=== PATIENT | male | born 1935 | race Caucasian/White ===

== ENCOUNTER 2016-09-27 18:41 | Emergency (ER) | payer MEDICARE ==
[2016-09-27] MEDS ORDERED: Ondansetron HCl/PF 4 MG/2 ML Vial ONE (19:27)
[2016-09-27] MEDS ORDERED: Morphine Sulfate 2 MG/ML SYRINGE ONE ×2 (19:27→20:10)
[2016-09-27] MEDS ORDERED: Ketorolac Tromethamine 30 MG/ML VIAL ONE (19:27)
--- NOTE | 2016-09-27 19:37 | RAD ---
RIGHT HIP TWO VIEW 09/27/16 HISTORY: Trauma, fall. COMPARISON: None. FINDINGS: There is a comminuted mid cervical femoral neck fracture with foreshortening. Large right hip joint effusion. Surgical clips of the right pelvis. IMPRESSION: Comminuted mid cervical foreshortened right femoral neck fracture. POS: [facility]
--- NOTE | 2016-09-27 19:40 | RAD ---
PELVIS ONE VIEW 09/27/16 HISTORY: Trauma, fall. COMPARISON: Right hip radiograph same day. FINDINGS: There is a mildly comminuted mid cervical right femoral neck fracture with lateral displacement. IMPRESSION: Mildly foreshortened and comminuted right mid cervical femoral neck fracture. POS: [facility]
[2016-09-27 20:18] LABS: INR-International Normal Ratio 2.1; PTT 35.5 SEC (22.9-36.1); Prothrombin Time 24.3 SEC (12.0-14.7)
[2016-09-27 20:23] LABS: Clarity Clear (Clear); Leukocyte Negative (Negative); Nitrite Negative (Negative)
[2016-09-27 20:24] LABS: Bilirubin Negative (Negative); Blood, Urine Trace (Negative); Glucose, Urine (Dipstick) Negative (Negative); Protein, Urine (Dipstick) Negative (Neg-Trace); Urobilinogen 0.2 mg/dL (0.2-1.0)
--- NOTE | 2016-09-27 20:24 | RAD ---
CHEST ONE VIEW 09/27/16 HISTORY: Cardiac disease. Preop. COMPARISON: None. FINDINGS: There is a large opacity in the left hemithorax. The right hilum is prominent. Small right effusion. Cardiac device is in place. No pneumothorax. IMPRESSION: 1. Large mass in the left hemithorax with a smooth superior margin as well as bilateral effusio ns. Followup CT is recommended. 2. Small right effusion. Code T POS: [facility]
[2016-09-27 20:26] LABS: #Basophils 0.1 thou/uL (0.0-0.2); #Eosinphils 0.1 thou/uL (0.0-0.7); #Lymphocytes 1.1 thou/uL (1.20-3.40); #Monocytes 0.4 thou/uL (0.11-0.59); #Neutrophils 4.9 thou/uL (1.40-6.50); %Basophils 1.1 % (0.0-1.0); %Eosinophils 1.4 % (0.0-10.0); %Lymphocytes 16.9 % (21.0-51.0); %Monocytes 6.6 % (0.0-10.0); Hemoglobin 10.4 g/dL (14.0-18.0); Mean Corpuscular HGB CONC 30.9 g/dL (32.0-36.0); Mean Corpuscular Hemoglobin 25.4 pg (27.0-31.0); Mean Corpuscular Volume 82.3 fl (80.0-94.0); Mean Platelet Volume 6.2 fL (7.4-10.4); Platelet Count 176 thou/uL (130-400); RBC Distribution Width 18.5 % (11.5-14.5); Red Blood Cell (RBC) Count 4.07 mill/uL (4.70-6.10); White Blood Cell (WBC) Count 6.6 thou/uL (4.8-10.8)
[2016-09-27 20:27] LABS: Anisocytosis SLIGHT = 6-15 cells (100X) (0-5/hpf); MDiff Complete? YES; Macrocytosis SLIGHT = 6-15 cells (100X) (0-5/hpf); PLT Morphology Comment Appears Adequate; Poikilocytosis SLIGHT = 6-15 cells (100X) (0-5/hpf)
[2016-09-27 20:29] LABS: ALT (SGPT) 10 U/L (8-55); AST (SGOT) 14 U/L (5-34); Albumin 3.6 g/dL (3.4-4.8); Alkaline Phosphatase 103 U/L (40-150); Anion Gap 17 mmol/L (10-20); BUN (Urea Nitrogen) 29 mg/dL (8.4-25.7); Bilirubin, Total 0.5 mg/dL (0.2-1.2); Calc. Creatinine Clearance 0 mL/min (70-130); Calcium 9.4 mg/dL (7.8-10.44); Carbon Dioxide 24 mmol/L (23-31); Chloride 101 mmol/L (98-107); Estimated GFR-MDRD 35; Globulin 3.4 g/dL (2.4-3.5); Glucose 176 mg/dL (83-110); Potassium 3.6 mmol/L (3.5-5.1); Sodium 138 mmol/L (136-145)
[2016-09-27 20:31] LABS: Troponin I 0.032 ng/mL (< 0.028)
[2016-09-27 20:33] LABS: Bacteria/HPF Rare-Few HPF (None Seen); RBC/HPF 0-3 HPF (0-3); Squamous Epithelial 0-3 HPF (0-3); WBC/HPF 0-3 HPF (0-3)
== END 2016-09-27 20:22 | disposition short-term general hospital (02) ==
LOC: EDBD 18:41 → MADERS 18:41
DX: S72.001A Fracture of unspecified part of neck of right femur, initial encounter for closed fracture (principal); I25.10 Atherosclerotic heart disease of native coronary artery without angina pectoris; I50.9 Heart failure, unspecified; E11.9 Type 2 diabetes mellitus without complications; Z95.0 Presence of cardiac pacemaker; Z95.5 Presence of coronary angioplasty implant and graft; Z87.891 Personal history of nicotine dependence; W19.XXXA Unspecified fall, initial encounter
CPT/HCPCS: 36415; 51702; 71010; 72170; 80053; 81001; 82553; 83735; 83880; 84484; 85025; 85610; 85730; 87086; 93005; 96374; 96375; 96376; J1885; J2270; J2405